=== PATIENT | female | born 1975 | race Caucasian/White ===

== ENCOUNTER 2019-12-13 08:47 | Emergency (ER) | payer MEDICAID ==
[2019-12-13] MEDS ORDERED: Acetaminophen/oxyCODONE 325-5 MG Tab PO ONE (09:14)
[2019-12-13] MEDS ORDERED: Ondansetron 4 MG Tab.DIS PO ONE (09:14)
[2019-12-13] MEDS ORDERED: Ibuprofen 600 MG Tab PO ONE (09:14)
--- NOTE | 2019-12-13 09:19 | EDM.PDOC ---
ED HPI GENERAL MEDICAL PROBLEM - General Chief Complaint: Flank Pain Stated Complaint: R SIDE FLANK PAIN Time Seen by Provider: 12/13/19 09:14 Source of Information: Reports: Patient History Limitations: Reports: No Limitations - History of Present Illness INITIAL COMMENTS - FREE TEXT/NARRATIVE: 43-year-old female presents to the ED with diffuse right low back pain. She is concerned that she had a kidney stone but she has no true flank pain she has pain primarily from her lower back on the right side. States it awoke her from sleep last night. Associated nausea without any vomiting. She states she has had this pain off and on for the last 3 days. Worse today. Pain is worse with movement such as getting in and out of the car. She has had kidney stones 3 times in the past and lithotripsy x2 with stent placement. Not noticed any blood in her urine. She has no signs or symptoms of a urinary tract infection with no dysuria urgency or frequency. The pain also does not make her feel like she has to void or defecate. Onset: Gradual Onset Date: 12/11/19 (Noticed the low back pain 2 days ago.) Duration: Day(s):, Getting Worse, Waxing/Waning Location: Reports: Back Quality: Reports: Ache (Right low back pain rating towards the right hip), Sharp Severity: Moderate (Occasional sharp and stabbing pain) Improves with: Reports: Rest Worsens with: Reports: Movement Context: Denies: Activity, Exercise, Lifting, Sick Contact, Trauma, Other Associated Symptoms: Reports: Nausea/Vomiting Treatments PRIME BROKER: Reports: Other (see below) (None.) Right Flank Pain Score (Numeric/FACES): 10 - Related Data Allergies Allergy/AdvReac Type Severity Reaction Status Date / Time No Known Allergies Allergy Verified 12/13/19 09:08 Home Meds: Home Meds Acetaminophen/HYDROcodone [[place] 325-5 MG] 1 tab PO Q6H PRN #14 tablet 07/27/18 [Rx] Hydrocodone/Acetaminophen [Hydrocodon-Acetaminophen 5-325] 1 tab PO Q4H PRN [History] Cyclobenzaprine [Flexeril] 10 mg PO BEDTIME PRN #10 tab 12/13/19 [Rx] oxyCODONE HCl/Acetaminophen [Percocet 5-325 mg Tablet] 1 - 2 each PO Q4H PRN # 16 tablet 12/13/19 [Rx] Past Medical History Cardiovascular History: Reports: Hypertension Respiratory History: Reports: Asthma Genitourinary History: Reports: Renal Calculus (Has had 3 previous bouts of renal colic 2 requiring lithotripsy and stent placement. Time was about 10 years ago) - Past Surgical History HEENT Surgical History: Reports: Tonsillectomy Female Surgical History: Reports: Section Other Musculoskeletal Surgeries/Procedures:: Ankle surgery, shoulder surgery - History Comment History Comment: albuteral inhaler prn and bp med but doesn't know what it is Social & Family History - Family History Family Medical History: Noncontributory - Tobacco Use Smoking Status *Q: Current Every Day Smoker Years of Tobacco use: 30 Packs/Tins Daily: 0.5 - Caffeine Use Caffeine Use: Reports: None - Recreational Drug Use Recreational Drug Use: No - Living Situation & Occupation Living situation: Reports: Single Occupation: Unemployed ED ROS GENERAL - Review of Systems Review Of Systems: See Below Constitutional: Denies: Fever, Chills, Malaise, Weakness, Fatigue, Decreased Appetite, Weight Loss HEENT: Reports: No Symptoms Respiratory: Reports: No Symptoms Cardiovascular: Reports: No Symptoms Endocrine: Reports: No Symptoms GI/Abdominal: Reports: Nausea : Denies: Dysuria, Flank Pain, Frequency, Urgency Musculoskeletal: Reports: Back Pain (He is right low back pain rating to the right hip and buttock area.) Skin: Reports: No Symptoms Neurological: Reports: No Symptoms Psychiatric: Reports: No Symptoms Hematologic/Lymphatic: Reports: No Symptoms Immunologic: Reports: No Symptoms ED EXAM,LOWER BACK PAIN/INJURY - Physical Exam Exam: See Below Exam Limited By: No Limitations General Appearance: Alert, WD/WN, Moderate Distress, Other (Vital signs show temperature 36.4 heart rate 102 and sinus respiratory to 16 O2 sats 97% on room air BP elevated 168 106.) Eye Exam: Bilateral Eye: Normal Inspection (No scleral icterus or blepharal pallor.) Throat/Mouth: Normal Inspection, Normal Lips, Normal Oropharynx Cardiovascular: Normal Peripheral Pulses, Regular Rate, Rhythm, No Edema, No Murmur, No Rub GI/Abdominal: Normal Bowel Sounds, Soft, Non-Tender, No Organomegaly, No Abnormal Bruit, No Mass, Pelvis Stable Back Exam: Other (Patient has tenderness over L4-L5 facet joints on the right side and some pain in the superior aspect of the right sacroiliac joint. Normal paraspinal muscle spasm) Extremities: Normal Inspection, Normal Range of Motion, Non-Tender Neurological: Alert, Normal Mood/Affect, Normal Dorsiflexion, CN II-XII Intact, Normal Gait, Oriented x 3 Psychiatric: Anxious Skin Exam: Warm, Dry, Intact, Normal Color, No Rash Course - Vital Signs Last Recorded V/S: Last Vital Signs Temp 36.4 C 12/13/19 09:06 Pulse 102 H 12/13/19 09:06 Resp 16 12/13/19 09:06 BP 168/106 H 12/13/19 09:06 Pulse Ox 97 12/13/19 09:06 - Orders/Labs/Meds Labs: Laboratory Tests 12/13/19 Range/Units 09:20 Urine Color Yellow (Yellow) Urine Appearance Clear (Clear) Urine pH 7.0 (5.0-8.0) Ur Specific [place] 1.020 (1.005-1.030) Urine Protein Negative (Negative) Urine Glucose (UA) Negative (Negative) Urine Ketones Negative (Negative) Urine Occult Blood Negative (Negative) Urine Nitrite Negative (Negative) Urine Bilirubin Negative (Negative) Urine Urobilinogen 0.2 (0.2-1.0) Ur Leukocyte Esterase Negative (Negative) Urine RBC Not seen (0-5) /hpf Urine WBC 0-5 (0-5) /hpf Ur Squamous Epith Cells 0-5 (0-5) /hpf Urine Bacteria Few (FEW) /hpf Urine Mucus Few (FEW) /hpf Meds: Medications Discontinued Medications Generic Name Dose Route Start Last Admin Trade Name Tim PRN Reason Stop Dose Admin Ibuprofen 600 mg 12/13/19 09:14 12/13/19 09:36 Motrin PO 12/13/19 09:15 600 mg ONETIME ONE Administration Ondansetron HCl 4 mg 12/13/19 09:14 12/13/19 09:35 Zofran Odt PO 12/13/19 09:15 4 mg ONETIME ONE Administration Oxycodone/Acetaminophen 1 tab 12/13/19 09:14 12/13/19 09:37 Percocet 325-5 Mg PO 12/13/19 09:15 1 tab ONETIME ONE Administration - Radiology Interpretation Free Text/Narrative:: 43-year-old female presents to the ED with right low back pain. She states it awoke her during the night and is quite intense. No sensation of need to void or defecate with it. She reports she is concerned about a kidney stone as she has had 3 kidney stones in the past. However pain is well localized to the lower lumbar spine L4-L5 facet joints. There is no true costovertebral angle tenderness or abdominal tenderness. Suspect low back pain. Plan urinalysis to be obtained. Given Motrin 600 mg p.o. with 1 Percocet 5/325 mg p.o. for pain relief and Zofran 4 mg sublingual as she is mildly nauseated. See no need for imaging of her low back at this time - Re-Assessments/Exams Free Text/Narrative Re-Assessment/Exam: 12/13/19 09:45 analysis is completely normal. It is the patient's back that is causing her current discomfort. 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 Continue Motrin 600 mg every 6 hours as needed for pain relief Percocet tab 5/325 mg 1 tablet every 4 hours as necessary for pain relief and Flexeril 10 mg at bedtime as needed for muscle relaxant. Departure - Departure Time of Disposition: 09:46 Disposition: Home, Self-Care 01 Condition: Fair Clinical Impression: Low back strain Qualifiers: Encounter type: initial encounter Qualified Code(s): S39.012A - Strain of muscle, fascia and tendon of lower back, initial encounter - Discharge Information *PRESCRIPTION DRUG MONITORING PROGRAM REVIEWED*: Not Applicable *COPY OF PRESCRIPTION DRUG MONITORING REPORT IN PATIENT MARLIN: Not Applicable Prescriptions: Cyclobenzaprine [Flexeril] 10 mg PO BEDTIME PRN #10 tab PRN Reason: relief of muscle spasm oxyCODONE HCl/Acetaminophen [Percocet 5-325 mg Tablet] 1 - 2 each PO Q4H PRN # 16 tablet PRN Reason: pain relief. Instructions: Low Back Strain Referrals: PCP,Not In Area [Primary Care Provider] - Forms: ED Department Discharge Additional Instructions: Evaluation in the emergency room this morning in regards to diffuse right-sided low back pain. Concern initially is whether or not she were getting a recurrent bout of renal colic. However the pain is very well localized to the facet joints of the lower lumbar spine particularly lumbar 4 and 5 areas. Pain radiates slightly into the right sacroiliac joint as well. Urinalysis done in the ED was completely normal showing no signs of infection or blood that would suggest a kidney stone. Expect the low back to settle down over the next week. Suggest Motrin 600 mg every 6-8 hours as needed for relief of pain and inflammation. Flexeril 10 mg primarily at bedtime for muscle relaxation and to aid sleep. Percocet tabs 5 /325 mg strength 1 or 2 tablets every 4-6 hours as necessary for pain relief for the next 2 to 3 days until the acute pain settles down. Up with personal care physician if not back completely back to normal in 7 to 10 days time Sepsis Event Note - Evaluation Sepsis Screening Result: No Definite Risk - Focused Exam Vital Signs: Vital Signs Temp Pulse Resp BP Pulse Ox 12/13/19 09:06 36.4 C 102 H 16 168/106 H 97 Date Exam was Performed: 12/13/19 Time Exam was Performed: 09:45
== END 2019-12-13 09:54 | disposition home or self-care (01) ==
LOC: JD.ED 08:47
DX: S39.012A Strain of muscle, fascia and tendon of lower back, initial encounter (principal); I10 Essential (primary) hypertension; J45.909 Unspecified asthma, uncomplicated; F17.210 Nicotine dependence, cigarettes, uncomplicated; X58.XXXA Exposure to other specified factors, initial encounter
CPT/HCPCS: 81001; 99283; A9270

== ENCOUNTER 2021-04-10 19:56 | Emergency (ER) | payer MEDICAID ==
[2021-04-10] MEDS ORDERED: Metoclopramide 10 MG/2 ML SDV IVPUSH ONE (20:10)
[2021-04-10] MEDS ORDERED: Dextrose 5%-0.9% NaCl 1,000 ML IV SCH (20:15)
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
[2021-04-10] MEDS ORDERED: Iopamidol 612 MG/ML 50 ML SDV IVPUSH ONE (20:33)
[2021-04-10] MEDS ORDERED: Iopamidol 612 MG/ML 100 ML Bottle IVPUSH ONE (20:33)
[2021-04-10] MEDS: Sodium Chloride 0.9% 10 ML Syringe FLUSH PRN ×2 (20:47→21:01)
[2021-04-10] MEDS: HYDROmorphone 0.5 MG/0.5 ML Syringe IVPUSH ONE (21:32)
[2021-04-10] MEDS ORDERED: Sodium Chloride 0.9% 1,000 ML IV SCH (22:15)
[2021-04-10] MEDS ORDERED: LORazepam 2 MG/ML SDV IVPUSH ONE (22:24)
[2021-04-11] MEDS: HYDROmorphone 0.5 MG/0.5 ML Syringe IVPUSH ONE (00:46)
[2021-04-11] MEDS ORDERED: LORazepam 2 MG/ML SDV IVPUSH ONE ×2 (01:27→06:25)
[2021-04-11] MEDS ORDERED: HYDROmorphone 0.5 MG/0.5 ML Syringe IVPUSH ONE ×2 (03:41→06:25)
[2021-04-11] MEDS ORDERED: Ketorolac 30 MG/ML SDV IVPUSH SCH (03:45)
--- NOTE | 2021-04-11 09:14 | CT ---
Head CT Technique: Multiple axial sections through the brain were obtained. Intravenous contrast was not utilized. Reconstructed coronal and sagittal images were obtained. Comparison: No prior intracranial imaging is available. Findings: Ventricles along with basal cisterns and sulci over the convexities are within normal limits for the patient's age. No abnormal parenchymal densities are seen. No evidence of intracranial hemorrhage. No midline shift or mass-effect is seen. Pineal cyst is seen which is partially calcified and measures about 9 mm, this is felt to be benign. Bone window settings were reviewed. There is deformity within the medial right orbital wall compatible with old healed fracture. Visualized paranasal sinuses show nothing acute. Visualized mastoid sinuses also show nothing acute. No acute calvarial abnormality is appreciated. Impression: 1. Findings as noted above. 2. Nothing acute is appreciated on noncontrast head CT study of the brain. Diagnostic code #2 I agree with preliminary report from [facility], finalized on 04/10/21, 10:28 PM CDT, code 1
--- NOTE | 2021-04-11 09:15 | CT ---
CT cervical spine Technique: Multiple axial sections were obtained from above C1 inferiorly to the mid to lower T2 vertebral body level. Reconstructed coronal and sagittal images were also obtained. Comparison: No prior cervical spine imaging is available. Findings: Mild disc space narrowing is noted at C3-4 and C4-5. Moderate disc space narrowing is noted at C5-6 and C6-7. Mild disc space narrowing is noted at C7-T1 and T1-2. Anterior osteophytes are noted at C4-5 through C6-7. Posterior osteophytes are seen at C5-6 and C6-7. Mild scattered degenerative apophyseal change is seen. Moderate neural foraminal stenosis is noted at C6-7. Mild central canal stenosis is also noted at C6-7. No acute fracture or subluxation is appreciated. Impression: 1. Degenerative change as noted above. 2. Nothing acute is appreciated on CT study of the cervical spine. Diagnostic code #2 I agree with preliminary report from [facility], finalized on 04/10/21, 10:31 PM CDT, code 1
--- NOTE | 2021-04-11 09:17 | CT ---
CT chest Technique: Multiple axial sections were obtained from above the lung apices inferiorly through the lung bases. Intravenous contrast was utilized. Reconstructed coronal and sagittal images were obtained. Comparison: No prior chest imaging is available. Findings: Thoracic aorta shows no aneurysm. No mediastinal or hilar adenopathy is seen. Mild degenerative change is noted within the coronary arteries. No pericardial thickening is appreciated. Lung window settings show no acute parenchymal change. No pleural effusions are seen. Bone window settings were reviewed. Degenerative change is noted within both shoulders, worse on the left side. Scattered degenerative spurring is noted within the spine. Old healed rib fracture is noted on the right side. Impression: 1. Findings as noted above. 2. Nothing acute is appreciated on CT study of the chest. Diagnostic code #2 I agree with preliminary report from [facility], finalized on 04/10/21, 10:54 PM CDT, code 1 CT abdomen and pelvis Technique: Multiple axial sections were obtained from above the dome of the diaphragm inferiorly through the pubic symphysis. Intravenous contrast was utilized. Reconstructed coronal and sagittal images were obtained. Comparison: No prior abdominal or pelvic imaging is available. Findings: Liver shows diminished density compatible with fatty infiltration. Small area of focal fatty sparing is seen next to the gallbladder. Gallbladder contains no calcified gallstones. Spleen size is normal. Adrenal glands show no nodule. Kidneys show symmetric contrast enhancement. No hydronephrosis or mass is seen. Pancreas shows no discrete abnormality. Abdominal aorta shows no aneurysm. No retroperitoneal adenopathy or mesenteric abnormalities are seen. Appendix is seen which is normal. No pelvic mass or adenopathy is seen. Bone window settings were reviewed. Scattered degenerative change is noted within the spine. No acute abnormality is appreciated. Impression: 1. Fatty infiltration within the liver. Other findings which are chronic as noted above. 2. Nothing acute is seen on CT study of the abdomen and pelvis. Diagnostic code #2 I agree with preliminary report from [facility], finalized on 04/10/21, 10:54 PM CDT, code 1
== END 2021-04-11 07:29 | disposition home or self-care (01) ==
LOC: JD.ED 19:56 → EEVIPCON 19:56 → JD.ED 04-11 07:29
DX: S20.02XA Contusion of left breast, initial encounter (principal); S40.022A Contusion of left upper arm, initial encounter; S00.83XA Contusion of other part of head, initial encounter; S70.12XA Contusion of left thigh, initial encounter; S00.531A Contusion of lip, initial encounter; F10.120 Alcohol abuse with intoxication, uncomplicated; I10 Essential (primary) hypertension; J45.909 Unspecified asthma, uncomplicated; Y90.0 Blood alcohol level of less than 20 mg/100 ml; Y04.0XXA Assault by unarmed brawl or fight, initial encounter
CPT/HCPCS: 36415; 70450; 71260; 72125; 74177; 80053; 80307; 82009; 82550; 83605; 83735; 85025; 96374; 96375; 96376; 99285; J1170; J1885; J2060; J2765; J7030; J7042; Q9967; 99284

== ENCOUNTER 2021-06-04 21:13 | Emergency (ER) | payer MEDICAID ==
[2021-06-04] MEDS ORDERED: Sodium Chloride 0.9% 10 ML Syringe FLUSH PRN (21:29)
[2021-06-04] MEDS ORDERED: Sodium Chloride 0.9% 1,000 ML IV ONE (21:30)
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
== END 2021-06-04 22:24 | disposition home or self-care (01) ==
LOC: JD.ED 21:13
DX: F10.120 Alcohol abuse with intoxication, uncomplicated (principal); H11.32 Conjunctival hemorrhage, left eye; I10 Essential (primary) hypertension; J45.909 Unspecified asthma, uncomplicated; Z72.0 Tobacco use; Z79.899 Other long term (current) drug therapy; Y04.0XXA Assault by unarmed brawl or fight, initial encounter
CPT/HCPCS: 99283; J7030; 99284

== ENCOUNTER 2021-08-22 02:43 | Emergency (ER) | payer MEDICAID ==
[2021-08-22] MEDS ORDERED: Morphine 4 MG/ML Syringe IM ONE (04:00)
[2021-08-22] MEDS ORDERED: Lidocaine 1% 10 ML MDV INJECT ONE (04:38)
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
[2021-08-22] MEDS ORDERED: Acetaminophen/HYDROcodone 325-5 MG Tab ONE (05:20)
[2021-08-22] MEDS ORDERED: Acetaminophen/HYDROcodone 325-5 MG Tab PO ONE (05:21)
[2021-08-22] MEDS ORDERED: Clindamycin HCl 150 MG Cap PO ONE (06:00)
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
== END 2021-08-22 07:25 | disposition home or self-care (01) ==
LOC: JD.ED 02:43
DX: S02.411A LeFort I fracture, initial encounter for closed fracture (principal); S01.511A Laceration without foreign body of lip, initial encounter; I10 Essential (primary) hypertension; J45.909 Unspecified asthma, uncomplicated; Z72.0 Tobacco use; W10.9XXA Fall (on) (from) unspecified stairs and steps, initial encounter
CPT/HCPCS: 12011; 70450; 70486; 96372; 99284; A9270; J2270